=== PATIENT | female | born 1960 | race Caucasian/White ===

== ENCOUNTER → 2017-06-03 | Outpatient (CLI) | payer OTHER ==
[~2017-06-03] MED LIST: COD LIVER OIL1 CAP; ZOLOFT 25MG25 MG PO
== END ==
LOC: MC.RAD 05-28 11:00
DX: Z12.31 Encounter for screening mammogram for malignant neoplasm of breast (principal)

== ENCOUNTER 2017-12-23 14:15 | Outpatient (RCR) | payer OTHER | END 2018-03-18 09:48 | disposition home or self-care (01) | LOC: WSOH 14:15 | DX: M70.942 Unspecified soft tissue disorder related to use, overuse and pressure, left hand (principal); M79.645 Pain in left finger(s); X50.3XXA Overexertion from repetitive movements, initial encounter; Y99.0 Civilian activity done for income or pay; Z88.5 Allergy status to narcotic agent; Z88.8 Allergy status to other drugs, medicaments and biological substances | CPT/HCPCS: 24091; A6549 ==

== ENCOUNTER 2018-05-19 13:09 | Emergency (ER) | payer OTHER ==
[~2018-05-19] VITALS: Ht 157.5 cm; Wt 68.2 kg
[2018-05-19 13:12] VITALS: TEMP 98.7
[2018-05-19 13:27] LABS: BASO % 0.4 % (0.0-2.0); EOS % 0.6 % (0-4.0); GRAN # 2.8 (1.4-6.5); HEMATOCRIT 39.6 % (37.0-47.0); HEMOGLOBIN 14.3 g/dl (12.5-16.0); LYMPH # 1.4 (1.2-3.4); LYMPH % 29.7 % (20.0-51.0); MEAN CELL VOLUME 83 fl (80.0-100.0); MEAN CORPUSCULAR HEMOGLOBIN 30 pg (27.0-31.0); MEAN CORPUSCULAR HGB CONC 36 g/dl (33.0-37.0); MEAN PLATELET VOLUME 10.5 fl (7.4-10.4); MONO # 0.4 (0.1-0.6); MONO % 9.1 % (1.7-9.3); PLATELET COUNT 192 K/mm3 (130-400); RED BLOOD COUNT 4.77 M/mm3 (4.10-5.30); REDCELL DISTRIBUTION WIDTH-CV 12.8 % (11.5-14.5)
[2018-05-19 13:39] LABS: ALANINE AMINOTRANSFERASE 28 U/L (9-52); ALBUMIN 4.1 gm/dL (3.5-5.0); ALKALINE PHOSPHATASE 103 U/L (50-136); ANION GAP 14 mmol/L (7-16); AST,SGOT 22 U/L (15-37); BILIRUBIN,TOTAL 0.9 mg/dL (0.0-1.0); BLOOD UREA NITROGEN 20 mg/dL (7-17); C-REACTIVE PROTEIN 1.2 mg/dL (0.0-0.9); CALCIUM 9.8 mg/dL (8.4-10.2); CARBON DIOXIDE 21 mmol/L (22-30); CHLORIDE 105 mmol/L (98-107); CREATININE, serum 0.79 mg/dL (0.52-1.25); GLUCOSE 114 mg/dL (74-106); POTASSIUM 3.8 mmol/L (3.4-5.0); SODIUM 140 mmol/L (137-145); TOTAL PROTEIN 7.9 gm/dL (6.4-8.2)
[2018-05-19 13:48] LABS: TROPONIN-I < 0.012 ng/mL (0.000-0.034)
[2018-05-19] MEDS ORDERED: NORVASC2.5 MG PO (15:26)
[2018-05-19] MEDS ORDERED: ULTRAM 50MG TAB50 MG PO (16:11)
[2018-05-19] MEDS ORDERED: MEDROL 4MG DOSPA4 MG PO (16:11)
[2018-05-19 16:32] VITALS: BP 149/84; PULSE 64
== END 2018-05-19 16:54 | disposition home or self-care (01) ==
LOC: COL.ER 13:09
PROVIDERS: Family Medicine
DX: M54.12 Radiculopathy, cervical region (principal)
CPT/HCPCS: J1170; J2405

== ENCOUNTER → 2019-12-25 | Outpatient (CLI) | payer OTHER ==
[~2019-12-25] MED LIST changes: +MEDROL 4MG DOSPA4 MG PO; +NORVASC2.5 MG PO; +ULTRAM 50MG TAB50 MG PO
== END ==
LOC: MC.RAD 10-25 15:45
DX: Z12.31 Encounter for screening mammogram for malignant neoplasm of breast (principal)

== ENCOUNTER → 2022-02-02 | Outpatient (CLI) | payer OTHER | LOC: MC.RAD 13:52 | DX: Z12.31 Encounter for screening mammogram for malignant neoplasm of breast (principal) ==